=== PATIENT | female | born 1970 | race Caucasian/White ===

== ENCOUNTER 2016-07-06 17:53 | Emergency (ER) | payer OTHER ==
[~2016-07-06] VITALS: Ht 162.6 cm; Wt 77.3 kg
[~2016-07-06 17:53] MED LIST: ACET500T98 PO; GEMF600T60 PO; OMEP20CA16 PO
[2016-07-06 18:06] VITALS: Ht 162.6 cm; Wt 77.3 kg
[2016-07-06] MEDS ORDERED: KETOROLAC 30 MG INJ IV STA (18:09)
[2016-07-06] MEDS ORDERED: SOD CHLORIDE 0.9% 1,000 ML IV STA (18:09)
[2016-07-06] MEDS ORDERED: ONDANSETRON 4 MG INJ IV STA ×2 (18:09→19:06)
[2016-07-06] MEDS ORDERED: HYDROmorphONE 1 MG/ML SYG IV STA ×2 (18:09→19:06)
[2016-07-06 18:20] LABS: ADD SCAN DIFF NO
[2016-07-06 18:24] LABS: BASOPHIL # 0.1 10^3/ul (0.0-0.1); BASOPHILS % 0.6 % (0.0-2.0); EOSINOPHILS # 0.4 10^3/ul (0.0-0.5); EOSINOPHILS % 3.2 % (0.0-7.0); HEMATOCRIT 37.7 % (37.0-47.0); HEMOGLOBIN 12.1 g/dl (12.0-16.0); LYMPHOCYTES # 4.4 10^3/ul (0.8-2.9); LYMPHOCYTES % 38.8 % (15.0-51.0); MEAN CORPUSCULAR HGB CONC 32.1 g/dl (32.0-37.0); MEAN CORPUSCULAR VOLUME 87.3 fl (82.0-101.0); MEAN PLATELET VOLUME 11.8 fl (7.4-10.4); MONOCYTE # 0.8 10^3/ul (0.3-0.9); MONOCYTES % 7.3 % (0.0-11.0); NEUTROPHIL # 5.6 10^3/ul (1.6-7.5); NEUTROPHILS % 49.7 % (39.0-77.0); PLATELET COUNT 280 10^3/UL (140-415); RED BLOOD COUNT 4.32 10^6/ul (4.20-5.40); RED CELL DISTRIBUTION WIDTH 13.9 % (11.5-14.5); WHITE BLOOD COUNT 11.3 10^3/ul (4.8-10.8)
[2016-07-06 18:39] LABS: BILIRUBIN,INDIRECT 0.1 mg/dl (0-1.1); BILIRUBIN,TOTAL 0.1 mg/dl (0.2-1.3); CREATININE 0.72 mg/dl (0.44-1.00); TOTAL PROTEIN 7.3 g/dl (6.1-8.1)
[2016-07-06 18:40] LABS: CALCIUM 8.6 mg/dl (8.4-10.2)
[2016-07-06 18:48] LABS: INR 0.9; PARTIAL THROMBOPLASTIN TIME 26.4 Sec (25.0-35.0); PROTIME 12.1 Sec (12.2-14.2); PT RATIO 0.9
[2016-07-06 18:54] LABS: ALBUMIN 3.7 g/dl (3.3-4.9); ALBUMIN/GLOBULIN RATIO 1.02; POTASSIUM 3.6 mmol/L (3.5-5.1)
[2016-07-06] MEDS ORDERED: PROPOFOL 200 MG INJ IV STA (19:06)
--- NOTE | 2016-07-06 19:23 | RADRPT ---
PROCEDURE: XR Chest. CLINICAL INDICATION: 45-year-old female with abdominal pain. TECHNIQUE: Single frontal view of the chest was obtained COMPARISON: No. FINDINGS: The soft tissues are normal. The bony elements are normal. Monitoring electrodes are draped across the chest. There is a suboptimal inspiration. The the heart is normal in size. The cardiomediast inal silhouette, pulmonary vasculature and hilar structures are normal. There is a left-sided aorta. The lungs are clear. The costophrenic angles are normal. IMPRESSION: 1. Normal chest x-ray allowing for poor inspiration. 2. No evidence of pneumoperitoneum. RPTAT:AAJJ Physician Wilder Date Time Electronically viewed and signed by Vic Cancino Physician on 07/06/2016 19:23 JOSE ROBERTO/
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
[2016-07-06] MEDS ORDERED: LORAZEPAM 2 MG INJ IV ONE (20:00)
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
[2016-07-06] MEDS ORDERED: HYDR-906 PO (20:35)
[2016-07-06] MEDS ORDERED: IBUP800T25 PO (20:35)
[2016-07-06] MEDS ORDERED: HYDROCODONE/APAP (5/325) TAB PO ONE (22:00)
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
[2016-07-06 22:18] VITALS: BP 116/79; PULSE 93; RESP 17; TEMP 98.9
== END 2016-07-06 22:52 | disposition home or self-care (01) ==
LOC: FTE 17:53 → E/R 22:52
DX: S52.351A Displaced comminuted fracture of shaft of radius, right arm, initial encounter for closed fracture (principal); R40.2252 Coma scale, best verbal response, oriented, at arrival to emergency department; S20.212A Contusion of left front wall of thorax, initial encounter; S52.614A Nondisplaced fracture of right ulna styloid process, initial encounter for closed fracture; S43.401A Unspecified sprain of right shoulder joint, initial encounter; S13.4XXA Sprain of ligaments of cervical spine, initial encounter; R40.2142 Coma scale, eyes open, spontaneous, at arrival to emergency department; R40.2362 Coma scale, best motor response, obeys commands, at arrival to emergency department; V49.50XA Passenger injured in collision with unspecified motor vehicles in traffic accident, initial encounter
CPT/HCPCS: 25565; 71010; 72040; 73030; 73090; 73100; 80053; 85025; 85610; 85730; 96374; 96375; 96376; J1170; J1885; J2060; J2405; J7030; Z7502; Z7610

== ENCOUNTER 2016-07-07 21:57 | Emergency (ER) | payer OTHER ==
[~2016-07-07] VITALS: Ht 162.6 cm; Wt 80.0 kg
[~2016-07-07 21:57] MED LIST changes: -ACET500T98 PO; -GEMF600T60 PO; +HYDR-906 PO; +IBUP800T25 PO; -OMEP20CA16 PO
[2016-07-07 22:21] VITALS: Ht 162.6 cm; Wt 80.0 kg
[2016-07-08] MEDS ORDERED: KETOROLAC 30 MG INJ IM STA (00:16)
[2016-07-08] MEDS ORDERED: HYDROCODONE/APAP (10/325) TAB PO ONE (00:30)
[2016-07-08] MEDS ORDERED: morphine 4 MG/ML VIAL IV STA (01:59)
[2016-07-08] MEDS ORDERED: SOD CHLORIDE 0.9% 1,000 ML IV STA (01:59)
[2016-07-08] MEDS ORDERED: ONDANSETRON 4 MG INJ IV STA (01:59)
[2016-07-08 02:40] LABS: ADD SCAN DIFF NO
[2016-07-08 02:44] LABS: BASOPHILS % 0.5 % (0.0-2.0); EOSINOPHILS # 0.2 10^3/ul (0.0-0.5); EOSINOPHILS % 3.1 % (0.0-7.0); HEMATOCRIT 36.8 % (37.0-47.0); HEMOGLOBIN 12.1 g/dl (12.0-16.0); LYMPHOCYTES # 2.9 10^3/ul (0.8-2.9); LYMPHOCYTES % 36.7 % (15.0-51.0); MEAN CORPUSCULAR HEMOGLOBIN 28.7 pg (29.0-33.0); MEAN CORPUSCULAR HGB CONC 32.9 g/dl (32.0-37.0); MEAN CORPUSCULAR VOLUME 87.2 fl (82.0-101.0); MEAN PLATELET VOLUME 11.4 fl (7.4-10.4); MONOCYTE # 0.5 10^3/ul (0.3-0.9); MONOCYTES % 6.6 % (0.0-11.0); NEUTROPHIL # 4.1 10^3/ul (1.6-7.5); NEUTROPHILS % 52.7 % (39.0-77.0); PLATELET COUNT 264 10^3/UL (140-415); RED BLOOD COUNT 4.22 10^6/ul (4.20-5.40); WHITE BLOOD COUNT 7.8 10^3/ul (4.8-10.8)
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
[2016-07-08 02:58] LABS: POTASSIUM 4.3 mmol/L (3.5-5.1)
[2016-07-08 02:59] LABS: INR 0.88; PROTIME 11.9 Sec (12.2-14.2); PT RATIO 0.9
[2016-07-08 03:00] LABS: PARTIAL THROMBOPLASTIN TIME 30.8 Sec (25.0-35.0)
[2016-07-08 03:01] LABS: CREATININE 0.69 mg/dl (0.44-1.00)
[2016-07-08 03:02] LABS: CALCIUM 8.9 mg/dl (8.4-10.2)
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
[2016-07-08] MEDS ORDERED: KETAMINE 500 MG INJ IV ONE (04:00)
[2016-07-08] MEDS ORDERED: PROPOFOL 0 ML ONE (05:12)
[2016-07-08] MEDS ORDERED: PROPOFOL 200 MG INJ IV ONE (05:30)
[2016-07-08] MEDS ORDERED: morphine 2 MG INJ IV ONE (06:00)
[2016-07-08 07:34] VITALS: BP 140/85; PULSE 59; RESP 11
[2016-07-08] MEDS ORDERED: OXYC-279 PO (07:37)
[2016-07-08] MEDS ORDERED: NAPR-688 PO (07:37)
[2016-07-08] MEDS ORDERED: DICLOFENAC SODIUM 37.5 MG/ML VIAL IV STA (07:48)
--- NOTE | 2016-07-08 09:07 | RADRPT ---
PROCEDURE: XR Wrist. CLINICAL INDICATION: Post reduction evaluation TECHNIQUE: 2 views of the right wrist were performed. COMPARISON: Radiographs of the right wrist earlier in the day FINDINGS: There is improved alignment of the impacted intra-articular distal radius fracture. There is still 5 mm of radial sided cortical offset and 8 mm of dorsal sided cortical offset. There is a mildly displaced ulnar styloid fracture. There is surrounding soft tissue swelling. No additional fractures are identified. IMPRESSION: 1. Improved alignment of the impacted intra-articular distal radius fracture as above noting persist ent radial and dorsal cortical offset. 2. Mildly displaced ulnar styloid fracture. RPTAT: UU .Abdoulaye Sharma MD, MD Date Time Electronically viewed and signed by .Abdoulaye Sharma MD, on 07/08/2016 09:06 .K/
== END 2016-07-08 08:10 | disposition short-term general hospital (02) ==
LOC: FTE 21:57 → E/R 07-08 08:10
DX: S52.511D Displaced fracture of right radial styloid process, subsequent encounter for closed fracture with routine healing (principal); V89.9XXD Person injured in unspecified vehicle accident, subsequent encounter
CPT/HCPCS: 25605; 36415; 73030; 73080; 73100; 73110; 80048; 82550; 82553; 83605; 84484; 85025; 85610; 85730; 96372; 96374; 96375; 96376; J1885; J2270; J2405; J7030; Z7502; Z7610

== ENCOUNTER 2016-07-27 12:46 | Day surgery (SDC) | payer OTHER ==
[2016-07-26 15:00] VITALS: Ht 154.9 cm; Wt 78.0 kg
[2016-07-27] VITALS (9 sets, daily range): BP systolic 92–114; BP diastolic 51–78; PULSE 76–88; RESP 10–25
[~2016-07-27] VITALS: Ht 154.9 cm; Wt 78.0 kg
[~2016-07-27 12:46] MED LIST changes: +NAPR-688 PO; +OXYC-279 PO
--- NOTE | 2016-07-27 13:17 | HPN ---
Date/Time of Note Date/Time of Note DATE: 07/27/16 TIME: 13:17 Interval H&P Admission Note Pt. seen H&P reviewed: No system changes MAXIMO SEGOVIA MD Jul 27, 2016 13:17
[2016-07-27] MEDS ORDERED: MIDAZOLAM 1 MG/ML 2 ML INJ ONE (14:11)
[2016-07-27] MEDS ORDERED: ROPIVACAINE 0.5 % 30 ML VIAL ONE (14:11)
[2016-07-27] MEDS ORDERED: ROCURONIUM 50 MG INJ ONE (14:11)
[2016-07-27] MEDS ORDERED: PROPOFOL 20 ML ONE ×2 (14:11→15:57)
[2016-07-27] MEDS ORDERED: FENTAnyl 50 MCG/ML VIAL ONE (14:11)
[2016-07-27] MEDS ORDERED: POLYMYXIN/BACITRACIN 1L IRRIG ONE (14:36)
[2016-07-27] MEDS ORDERED: BUPIVACAINE 0.5%/EPI (SDV) 30 ML INJ ONE (14:36)
[2016-07-27] MEDS ORDERED: BUPIVACAINE 0.5% (SDV) 30 ML INJ ONE (14:38)
[2016-07-27] MEDS ORDERED: NEOMYC/POLYMYX/BACIT 30 GM OINT ONE (15:48)
[2016-07-27] MEDS ORDERED: KETOROLAC 30 MG INJ ONE (15:52)
[2016-07-27] MEDS ORDERED: METOCLOPRAMIDE 10 MG INJ ONE (15:52)
[2016-07-27] MEDS ORDERED: ONDANSETRON 4 MG INJ ONE (15:52)
[2016-07-27] MEDS ORDERED: ACETAMINOPHEN 1000MG/100ML IV 100 ML ONE (15:52)
[2016-07-27] MEDS ORDERED: DEXAMETHASONE 4 MG/ML 1 ML INJ ONE (15:52)
[2016-07-27] MEDS ORDERED: METOCLOPRAMIDE 10 MG INJ IV PRN (16:00)
[2016-07-27] MEDS ORDERED: HYDROmorphONE (0.2 MG/ML) 10ML SYG IV PRN ×3 (16:00)
[2016-07-27] MEDS ORDERED: MEPERIDINE 25 MG INJ IV PRN (16:00)
[2016-07-27] MEDS ORDERED: LABETALOL HCL 20MG INJ IV PRN (16:00)
[2016-07-27] MEDS ORDERED: EPHEDrine SULFATE 50 MG/5 ML SYG IV PRN (16:00)
[2016-07-27] MEDS ORDERED: ONDANSETRON 4 MG INJ IV PRN (16:00)
[2016-07-27] MEDS ORDERED: DIPHENHYDRAMINE 50 MG INJ IV PRN (16:00)
[2016-07-27] MEDS ORDERED: morphine (1 MG/ML) 10ML SYRINGE IV PRN ×3 (16:00)
[2016-07-27] MEDS ORDERED: HYDROCODONE/APAP (10/325) TAB PO ONE (17:00)
--- NOTE | 2016-07-27 18:44 | RADRPT ---
PROCEDURE: Intraoperative imaging of the right wrist with fluoroscopy. CLINICAL INDICATION: Right wrist pain. Intraoperative. TECHNIQUE: 2 images of the right wrist were obtained in the operating room with an image intensifi er. No radiologist was in attendance. 50 seconds of fluoroscopy time was used. COMPARISON: Right wrist radiographs dated 07/08/2016. FINDINGS: There is open reduction and internal fixation with a plate and multiple screws transfixing the fract ure of the distal radius. IMPRESSION: 1. Intraoperative imaging of the right wrist. RPTAT: QQ .Guy Mahoney MD, MD Date Time Electronically viewed and signed by .Guy Mahoney MD, MD on 07/27/2016 18:44 .R/
--- NOTE | 2016-07-28 05:18 | OPR ---
DATE OF OPERATION: 07/27/2016 SURGEON: Maximo Flores MD ANESTHESIA: General. PREOPERATIVE DIAGNOSIS: Comminuted displaced intra-articular fracture, right distal radius. POSTOPERATIVE DIAGNOSIS: Comminuted displaced intraarticular fracture, right distal radius. PROCEDURE PERFORMED: 1. Open reduction internal fixation of right distal radius fracture using [place] volar plate with 2.7 mm locking and cortical screws. 2. Interpretation of intraoperative fluoroscopy x-ray. 3. Application of short arm fiberglass cast. ESTIMATED BLOOD LOSS: 50 mL. TOURNIQUET TIME: 40 minutes. COMPLICATIONS: None. DESCRIPTION OF PROCEDURE: Patient was taken to the operating room and general anesthetic given with intubation. Then 2 grams of Kefzol given for prophylaxis. Tourniquet applied on the right arm. T he right arm was prepped and draped in the usual sterile manner, exsanguinated with Esmarch bandage and the tourniquet was inflated to 200 mmHg. An incision was made radial to the palmaris tendon. C areful dissection while protecting neurovascular bundle. Pronator muscle was divided. The radius w as identified. The fracture was visualized and reduced with traction and manipulation. The distal intraarticular portion was comminuted. This was ____with bone clamp and the short plate by Miladis placed with initially 2 cortical screws for reduction of the plate and maintaining the alignment of the radius in AP and lateral views. This was followed by 6 locking screws distally and proximally. Final x-ray showed satisfactory alignment of the fracture in the AP and lateral views. Wound was i rrigated with antibiotic solution. Hemostasis was obtained using cautery. Fascia was closed with V icryl suture and skin was closed with romy. Antibiotic ointment, soft dressing and ample cast pa dding. A short arm fiberglass cast was applied. Anesthetic was reversed. Tourniquet deflated. Th e patient was taken to the recovery in stable condition. Dictated By: MAXIMO RANGEL/CASSANDRA Conf#: [id number] DID#: [id number]
== END 2016-07-27 17:30 | disposition home or self-care (01) ==
LOC: SDS 12:46
PROVIDERS: ATTEND Specialist
DX: S52.571A Other intraarticular fracture of lower end of right radius, initial encounter for closed fracture (principal); X58.XXXA Exposure to other specified factors, initial encounter; Y92.89 Other specified places as the place of occurrence of the external cause
CPT/HCPCS: 25608; 73100; J0131; J1100; J1885; J2250; J2405; J2765; J2795; J3010; Z7512; Z7610

== ENCOUNTER 2017-02-01 12:15 | Day surgery (SDC) | payer OTHER ==
[~2017-02-01] VITALS: Ht 162.6 cm; Wt 74.0 kg
[2017-02-01] VITALS (11 sets, daily range): BP systolic 104–132; BP diastolic 63–84; PULSE 58–79; RESP 10–20; Ht 162.6 cm; Wt 74.0 kg
[~2017-02-01 12:15] MED LIST changes: +CEFAZOLIN 1 GM/50 ML (PMX) 50 ML IVPB SCH
--- NOTE | 2017-02-01 14:21 | SIPON ---
Date/Time of Note Date/Time of Note DATE: 02/01/17 TIME: 14:19 Operative Report Preoperative Diagnosis retained hardware Postoperative Diagnosis same Operation/Procedure Performed removal of hardware Surgeon see signature line pharmacist assistant none Anesthesia: general Estimated blood loss: minimal Transfusion Required none Specimen none Grafts/Implants acl allograft Complications none MAXIMO SEGOVIA MD Feb 01, 2017 14:21
[2017-02-01] MEDS ORDERED: MIDAZOLAM 1 MG/ML 2 ML INJ ONE (14:26)
[2017-02-01] MEDS ORDERED: POLYMYXIN/BACITRACIN 1L IRRIG IRR ONE (14:47)
[2017-02-01] MEDS ORDERED: POLYMYXIN/BACITRACIN 1L IRRIG ONE (14:48)
[2017-02-01] MEDS ORDERED: BACITRACIN/POLYMYXIN 28.35 GM OINT TOP ONE (14:48)
[2017-02-01] MEDS ORDERED: ROPIVACAINE 0.5 % 30 ML VIAL ONE (14:56)
[2017-02-01] MEDS ORDERED: LIDOCAINE 2% (SDV) 5 ML INJ ONE (15:13)
[2017-02-01] MEDS ORDERED: CEFAZOLIN 1 GM INJ ONE (15:13)
[2017-02-01] MEDS ORDERED: PROPOFOL 20 ML ONE (15:13)
[2017-02-01] MEDS ORDERED: ONDANSETRON 4 MG INJ ONE (15:14)
[2017-02-01] MEDS ORDERED: FENTAnyl 50 MCG/ML VIAL IV PRN (15:30)
[2017-02-01] MEDS ORDERED: NALOXONE (0.4 MG/ML) INJ IV PRN (15:30)
[2017-02-01] MEDS ORDERED: ONDANSETRON 4 MG INJ IV PRN (15:30)
[2017-02-01] MEDS ORDERED: DIPHENHYDRAMINE 50 MG INJ IV PRN (15:30)
[2017-02-01] MEDS ORDERED: MEPERIDINE 25 MG INJ IV PRN (15:30)
[2017-02-01] MEDS ORDERED: HYDROmorphONE (0.2 MG/ML) 10ML SYG IV PRN ×2 (15:30)
[2017-02-01] MEDS ORDERED: MEPERIDINE 25 MG INJ ONE (15:31)
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
== END 2017-02-01 17:15 | disposition home or self-care (01) ==
LOC: SDS 12:15
PROVIDERS: ATTEND Specialist
DX: S52.501D Unspecified fracture of the lower end of right radius, subsequent encounter for closed fracture with routine healing (principal); X58.XXXD Exposure to other specified factors, subsequent encounter; I10 Essential (primary) hypertension; E66.01 Morbid (severe) obesity due to excess calories
CPT/HCPCS: 20680; 88300; J0690; J2175; J2250; J2405; J2795; J3010; Z7512; Z7610